=== PATIENT | female | born 1965 ===

== ENCOUNTER 2019-11-18 13:45 | Emergency (ER) | payer SELFPAY ==
[2019-11-18 13:53] VITALS: BP 114/76; PULSE 78; RESP 16; TEMP 36.5; O2SAT 100; BMI 64.5
[2019-11-18 14:17] VITALS: BP 117/71; PULSE 83; RESP 18; TEMP 36.9; O2SAT 100
--- NOTE | 2019-11-18 14:42 | ED_ITS ---
HPI - General Adult General Chief complaint: Nausea/Vomiting/Diarrhea Stated complaint: diarrhea,coughing,lump on shoulder Time Seen by Provider: 11/18/19 14:40 Source: patient Mode of arrival: ambulatory Limitations: no limitations History of Present Illness HPI narrative: 54 y/o female presenting with flu-like symptoms for the last 1 week and left sided neck soreness for 2 weeks. She just came from the [facility] out patient clinic where she was tested. She is refusing blood work and CXR at this time. She is just wanting her left neck lump evaluated. She denies injury and just remembers waking up with a sore neck and a hard lump on her upper shoulder/lower left neck. Pain increases with palpation and movement. Related Data Previous Rx's Medication Instructions Recorded cyclobenzaprine 10 mg PO TID PRN #15 tab 11/18/19 lidocaine [Lidoderm] 1 patch TOPICAL DAILY #15 ea 11/18/19 Allergies Allergy/AdvReac Type Severity Reaction Status Date / Time No Known Allergies Allergy Verified 11/18/19 13:53 Review of Systems Review of Systems: Constitutional: No Fever, + Chills ENT/Mouth: No sore throat, No Rhinorrhea, No Swallowing Difficulty Eyes: No Eye Pain, No Swelling, No Redness Cardiovascular: No Chest Pain, No SOB, No Orthopnea, No Edema Respiratory:+ Cough, No Sputum, No Wheezing, No dyspnea Gastrointestinal: + Nausea, No Vomiting, + Diarrhea, No abdominal Pain, No Hematochezia, No Melena Genitourinary: No Dysuria, No Urinary Frequency, No Hematuria Musculoskeletal: No joint pain, + Myalgias Skin: No Skin Lesions, No rash Neuro: No Weakness, No Numbness, No Dizziness, No Headache Psych: No Anxiety/Panic, No Depression Heme/Lymph: No Bruising, No Lymphadenopathy Endocrine: No Polyuria, No Polydipsia PMFSH Social History Social History Alcohol intake: current Alcohol intake frequency: holidays/special occasions only Smoking Status: Current every day smoker Use of substances other than those prescribed or required for medical reasons: No Physical Exam Vital Signs and I&O and Narrative: Vital Signs and I&O: Vital Signs Temp 98.7 F 11/18/19 15:05 Pulse 75 11/18/19 15:05 Resp 16 11/18/19 15:05 BP 114/75 11/18/19 15:05 Pulse Ox 99 11/18/19 15:05 Intake & Output 11/17/19 11/18/19 11/18/19 18:59 06:59 18:59 Weight 145 kg Body Mass Index 64.5 Appearance: Alert. Oriented X3. No acute distress. Eyes: Pupils equal, round and reactive to light. ENT: Pharynx normal. Neck: Normal inspection. Neck supple. left sided trapezius spasm with palpable muscle cord that is tender CVS: Normal heart rate and rhythm. Pulses normal. Respiratory: No respiratory distress. Breath sounds normal. Abdomen: Soft and nontender. +BS x4 Skin: Skin warm and dry. Normal skin color. Normal skin turgor. No rashes. Extremities: No lower extremity edema. Neuro: Oriented X 3. No motor deficit. No sensory deficit. Course Course Course Narrative: refusing CXR and labs. VSS. no acute distress, non-toxic appearing. lump on her neck is consistent with muscle spasm - will give Rx for Flexeril and Lidoderm. Stable for d/c. Medical Decision Making MDM Narrative Medical decision making narrative: Flu like symptoms with GI symptoms x1 week - Ddx includes but not limited to influenza, COVID-19, viral syndrome, gastroenteritis, food bourne illness, dehydration, electrolyte derrangaements Discharge Plan Discharge Clinical Impression: Strain of cervical portion of left trapezius muscle Patient Disposition: Home, Self-Care Instructions: Cervical Strain (ED) Additional Instructions: Use ice and/or heat to the area for 20 minutes at time - 3-4 times per day. Use gentle massage to help with spasm. If your pain gets worse or if you are unable to move your next, call 911 or come back to the ER for further evaluation. Follow up with your PCP next week. Prescriptions: New cyclobenzaprine 10 mg tablet 10 mg PO TID PRN (Reason: muscle spasm) Qty: 15 RF: 0 lidocaine [Lidoderm] 5 % adhesive patch,medicated 1 patch topical DAILY Qty: 15 RF: 0
[2019-11-18 15:05] VITALS: BP 114/75; PULSE 75; RESP 16; TEMP 37.1; O2SAT 99
[2019-11-18 15:06] VITALS: PULSE 75; O2SAT 99
--- NOTE | 2019-11-18 15:07 | PC.NURSE ---
Pt is refusing iv, labs, cardiac cath lab technologist. pt states nausea and diarrhea have been happening for years and are unchanged. c/o r sided shoulder and neck pain/tightness- no obvious deformity, +rom
== END 2019-11-18 15:26 | disposition home or self-care (01) ==
LOC: HO.ED 15:27
PROVIDERS: Emergency Provider Internal Medicine
DX: S16.1XXA Strain of muscle, fascia and tendon at neck level, initial encounter (principal); M54.2 Cervicalgia; X58.XXXA Exposure to other specified factors, initial encounter; Y93.9 Activity, unspecified; Y92.9 Unspecified place or not applicable; F17.200 Nicotine dependence, unspecified, uncomplicated; Z71.6 Tobacco abuse counseling; Z20.828 Contact with and (suspected) exposure to other viral communicable diseases
CPT/HCPCS: 99284; 99285